=== PATIENT | female | born 1985 | race Caucasian/White ===

== ENCOUNTER → 2019-10-06 | Outpatient (CLI) | payer MEDICAID, SELFPAY ==
[~2019-10-06] MED LIST: ATI1 PO; BUS5; IBU800 M2 PO; ZITHROMAX500 MG PO
== END | disposition home or self-care (01) ==
LOC: LB 16:34
DX: U07.1 COVID-19 (principal)
CPT/HCPCS: U0003-CS

== ENCOUNTER → 2019-10-31 | Outpatient (CLI) | payer MEDICAID ==
[2019-10-31 13:43] LABS: FREE THYROXINE INDEX 2.3 ug/dL (1.4-4.5); T4(THYROXINE) 7.6 ug/dL (4.7-13.3)
[2019-10-31 14:03] LABS: T3 TOTAL 1.31 ng/mL
== END | disposition home or self-care (01) ==
LOC: LB 11:35
DX: M79.89 Other specified soft tissue disorders (principal)
CPT/HCPCS: 84439